=== PATIENT | male | born 2000 | race Caucasian/White ===

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

== ENCOUNTER 2021-11-23 01:32 | Emergency (ER) | payer BC ==
[2021-11-23] MEDS ORDERED: IBUPROFEN 400 MG TAB ONE (03:36)
[2021-11-23] MEDS ORDERED: IBUPROFEN 200 MG TAB PO ONE (03:36)
--- NOTE | 2021-11-23 03:39 | ER ---
Nurse's Notes [facility] Name: Luis Wilson Age: 20 yrs Sex: Male : 2000 Arrival Date: 11/23/2021 Time: 01:57 Bed 19 Private MD: Diagnosis: Chest pain, unspecified Presentation: 11/23 02:00 Chief complaint: Patient states: tight pressure in chest started over the weekend. at lg3 first it came and went but now its consistant. denies SOB at this time. Coronavirus screen: Vaccine status: Patient reports receiving the 1st dose of the Covid vaccine. moderna x1 Client denies travel out of the [place] in the last 14 days. At this time, the client does not indicate any symptoms associated with coronavirus-19. Ebola Screen: No symptoms or risks identified at this time. Initial Sepsis Screen: Does the patient meet any 2 criteria? No. Patient's initial sepsis screen is negative. Does the patient have a suspected source of infection? No. Patient's initial sepsis screen is negative. Risk Assessment: Do you want to hurt yourself or someone else? Patient reports no desire to harm self or others. Onset of symptoms was November 20, 2021. 02:00 Method Of Arrival: Ambulatory lg3 02:00 Acuity: JAMAR 3 ll3 Triage Assessment: 02:05 General: Appears in no apparent distress. Behavior is calm, cooperative. Pain: lg3 Complains of pain in chest Pain does not radiate. Pain currently is 2 out of 10 on a pain scale. Quality of pain is described as heavy, pressure. Neuro: Level of Consciousness is awake, alert, obeys commands, Oriented to person, place, time, situation. Cardiovascular: Capillary refill < 3 seconds JVD Thorax Patient's skin is warm and dry. Respiratory: Airway is patent Trachea midline Respiratory effort is even, unlabored, Respiratory pattern is regular, symmetrical. Historical: - Allergies: 02:05 No Known Allergies; lg3 - Home Meds: 02:05 None [Active]; lg3 - PMHx: 02:05 None; lg3 - PSHx: 02:05 None; lg3 - Immunization history:: Adult Immunizations up to date, Client reports receiving the 1st dose of the Covid vaccine, moderna x1. - Social history:: Smoking status: Patient denies any tobacco usage or history of. - Family history:: not pertinent. Screenin:46 Abuse screen: Denies threats or abuse. Nutritional screening: No deficits noted. sf1 Tuberculosis screening: No symptoms or risk factors identified. Fall Risk None identified. Assessment: 03:47 Pain: Pain began 1 day ago. sf1 Vital Signs: 02:00 BP 130 / 79 RA; Pulse 58; Resp 18 S; Temp 98.4(O); Pulse Ox 100% on R/A; Weight 79.38 lg3 kg (R); Height 6 ft. (182.88 cm) (R); Pain 2/10; 02:00 Body Mass Index 23.73 (79.38 kg, 182.88 cm) lg3 ED Course: 01:57 Patient arrived in ED. es 02:05 Triage completed. lg3 02:05 Arm band placed on right wrist. lg3 02:21 Jeffry Bonilla MD is Attending Physician. michelle 02:29 Maddy De Anda RN is Primary Nurse. sf1 02:39 SARS-COV-2 RT PCR (Document "Date of Onset" if Symptomatic) Sent. sf1 03:09 Chest Single View XRAY In Process Unspecified. EDOR 03:46 Patient has correct armband on for positive identification. Pulse ox on. NIBP on. sf1 03:46 No provider procedures requiring assistance completed. Patient did not have IV access sf1 during this emergency room visit. Patient maintains SpO2 saturation greater than 95% on room air. Administered Medications: 03:46 Drug: Motrin (ibuprofen) 600 mg Route: PO; sf1 Outcome: 03:39 Discharge ordered by . [facility] 03:46 Discharged to home ambulatory. sf1 03:46 Condition: good 03:46 Discharge instructions given to patient, Instructed on discharge instructions, follow up and referral plans. Demonstrated understanding of instructions, follow-up care, medications, Prescriptions given X 2. 03:47 Patient left the ED. sf1 Signatures: Dispatcher [employer] EDOR Jeffry Bonilla MD MD cha Salyer, Edna es Gibson, Lacie, RN RN lg3 Mackenzie Segura RN RN ll3 Maddy De Anda RN RN sf1 Corrections: (The following items were deleted from the chart) 02:07 02:00 Acuity: JAMAR 5 lg3 ll3
--- NOTE | 2021-11-23 03:40 | EDPHYS ---
Physician Documentation [facility] Name: Luis Wilson Age: 20 yrs Sex: Male : 2000 Arrival Date: 11/23/2021 Time: 01:57 Bed 19 Private MD: LUIZ Physician Jeffry Bonilla HPI: 11/23 02:34 This 20 yrs old Male presents to ER via Ambulatory with complaints of Chest michelle Pressure, Breathing Difficulty. 02:34 This 20 yrs old Black Male presents to ER via Ambulatory with complaints of Chest michelle Pressure, Breathing Difficulty. 02:34 The patient or guardian reports chest pain that is located primarily in the anterior michelle chest wall, bilaterally. The pain does not radiate. Associated signs and symptoms: Pertinent positives: cough. The chest pain is described as aching. Duration: The patient or guardian reports multiple episodes, that are intermittent. Modifying factors: The symptoms are alleviated by nothing. the symptoms are aggravated by nothing. Severity of pain: At its worst the pain was mild in the emergency department the pain is unchanged. The patient has not experienced similar symptoms in the past. Historical: - Allergies: 02:05 No Known Allergies; lg3 - Home Meds: 02:05 None [Active]; lg3 - PMHx: 02:05 None; lg3 - PSHx: 02:05 None; lg3 - Immunization history:: Adult Immunizations up to date, Client reports receiving the 1st dose of the Covid vaccine, moderna x1. - Social history:: Smoking status: Patient denies any tobacco usage or history of. - Family history:: not pertinent. ROS: 02:34 Constitutional: Negative for fever, chills, and weight loss, Eyes: Negative for injury, michelle pain, redness, and discharge, ENT: Negative for injury, pain, and discharge, Neck: Negative for injury, pain, and swelling, Cardiovascular: Negative for chest pain, palpitations, and edema, Respiratory: Negative for shortness of breath, cough, wheezing, and pleuritic chest pain, Abdomen/GI: Negative for abdominal pain, nausea, vomiting, diarrhea, and constipation, Back: Negative for injury and pain, : Negative for injury, bleeding, discharge, and swelling, MS/Extremity: Negative for injury and deformity, Skin: Negative for injury, rash, and discoloration, Neuro: Negative for headache, weakness, numbness, tingling, and seizure, Psych: Negative for depression, anxiety, suicide ideation, homicidal ideation, and hallucinations, Allergy/Immunology: Negative for hives, rash, and allergies, Endocrine: Negative for neck swelling, polydipsia, polyuria, polyphagia, and marked weight changes, Hematologic/Lymphatic: Negative for swollen nodes, abnormal bleeding, and unusual bruising. Exam: 02:34 Constitutional: This is a well developed, well nourished patient who is awake, alert, michelle and in no acute distress. Head/Face: Normocephalic, atraumatic. Eyes: Pupils equal round and reactive to light, extra-ocular motions intact. Lids and lashes normal. Conjunctiva and sclera are non-icteric and not injected. Cornea within normal limits. Periorbital areas with no swelling, redness, or edema. ENT: Nares patent. No nasal discharge, no septal abnormalities noted. Tympanic membranes are normal and external auditory canals are clear. Oropharynx with no redness, swelling, or masses, exudates, or evidence of obstruction, uvula midline. Mucous membranes moist. Neck: Trachea midline, no thyromegaly or masses palpated, and no cervical lymphadenopathy. Supple, full range of motion without nuchal rigidity, or vertebral point tenderness. No Meningismus. Chest/axilla: Normal chest wall appearance and motion. Nontender with no deformity. No lesions are appreciated. Cardiovascular: Regular rate and rhythm with a normal S1 and S2. No gallops, murmurs, or rubs. Normal PMI, no JVD. No pulse deficits. Respiratory: Lungs have equal breath sounds bilaterally, clear to auscultation and percussion. No rales, rhonchi or wheezes noted. No increased work of breathing, no retractions or nasal flaring. Abdomen/GI: Soft, non-tender, with normal bowel sounds. No distension or tympany. No guarding or rebound. No evidence of tenderness throughout. Back: No spinal tenderness. No costovertebral tenderness. Full range of motion. Male : Normal genitalia with no discharge or lesions. Skin: Warm, dry with normal turgor. Normal color with no rashes, no lesions, and no evidence of cellulitis. MS/ Extremity: Pulses equal, no cyanosis. Neurovascular intact. Full, normal range of motion. Neuro: Awake and alert, GCS 15, oriented to person, place, time, and situation. Cranial nerves II-XII grossly intact. Motor strength 5/5 in all extremities. Sensory grossly intact. Cerebellar exam normal. Normal gait. Psych: Awake, alert, with orientation to person, place and time. Behavior, mood, and affect are within normal limits. 02:34 Musculoskeletal/extremity: DVT Exam: No signs of deep vein thrombosis. no pain, no swelling, no tenderness, negative Homans' sign noted on exam, no appreciated bluish discoloration, no erythema, no increased warmth. Vital Signs: 02:00 BP 130 / 79 RA; Pulse 58; Resp 18 S; Temp 98.4(O); Pulse Ox 100% on R/A; Weight 79.38 lg3 kg (R); Height 6 ft. (182.88 cm) (R); Pain 2/10; 02:00 Body Mass Index 23.73 (79.38 kg, 182.88 cm) lg3 MDM: 02:21 Patient medically screened. michelle 02:40 Differential diagnosis: abnormal EKG, acute myocardial infarction, chest wall pain, michelle Cholelithiasis esophagitis, gastritis, hiatal hernia, pericarditis, pleurisy, pneumonia, pulmonary embolus, stable angina, unstable angina. HEART Score: History: Slightly Suspicious (0), ECG: Normal (0), Age: < or = 45 years (0), Risk Factors: No Risk Factors Known (0), Total Score = 0. The patient's deep vein thrombosis risk score was calculated as follows: Total Score: 0. This patient was found to be at low risk for a deep vein thrombosis by using the Well's assessment criteria. The patient's pulmonary embolism risk score was calculated as follows: Total Score: 0-2 points. This patient was found to be at low risk for a pulmonary embolism by using the Well's assessment criteria. SUSSY Risk Score: TOTAL SCORE = 0. Data reviewed: vital signs, nurses notes, lab test result(s), EKG, radiologic studies, plain films. Data interpreted: monitor car operator: rate is 58 beats/min, rhythm is regular, Pulse oximetry: on room air is 100 %. Test interpretation: by ED physician or midlevel provider: ECG, plain radiologic studies. Counseling: I had a detailed discussion with the patient and/or guardian regarding: the historical points, exam findings, and any diagnostic results supporting the discharge/admit diagnosis, lab results, radiology results, the need for outpatient follow up, for definitive care, a family practitioner. 11/23 02:29 Order name: SARS-COV-2 RT PCR (Document "Date of Onset" if Symptomatic); Complete Time: [facility] 03:41 11/23 02:29 Order name: Chest Single View XRAY [facility] 11/23 02:29 Order name: EKG; Complete Time: 02:30 [facility] 11/23 02:29 Order name: EKG - Nurse/Tech; Complete Time: 02:29 [facility] Administered Medications: 03:46 Drug: Motrin (ibuprofen) 600 mg Route: PO; sf1 Disposition Summary: 11/23/21 03:39 Discharge Ordered Location: Home [facility] Problem: new [facility] Symptoms: have improved michelle Condition: Stable michelle Diagnosis - Chest pain, unspecified michelle Followup: [facility] - With: Private Physician - When: 1 - 2 days - Reason: Recheck today's complaints, Continuance of care, Re-evaluation by your physician Discharge Instructions: - Discharge Summary Sheet [facility] - Nonspecific Chest Pain, Adult michelle - Nonspecific Chest Pain, Adult, [id number] [facility] - Aspirin and Your Heart [facility] Forms: - Medication Reconciliation Form [facility] - Thank You Letter [facility] - Antibiotic Education [facility] - Prescription Opioid Use [facility] Prescriptions: - Ibuprofen 600 mg Oral Tablet - take 1 tablet by ORAL route every 6 hours As needed take with food; 20 tablet; [facility] Refills: 0, Product Selection Permitted - Pepcid 20 mg Oral Tablet - take 1 tablet by ORAL route every 12 hours for 10 days; 20 tablet; Refills: 0, [facility] Product Selection Permitted Signatures: Dispatcher [employer] Jeffry Godoy MD MD cha Gibson, Lacie, RN RN lg3 Maddy De Anda RN RN sf1
[2021-11-23 03:52] VITALS: BP 130/79; TEMP 98.4; O2SAT 100
--- NOTE | 2021-11-23 07:31 | RAD REPORT ---
EXAM DESCRIPTION: RAD - Chest Single View - 11/23/2021 3:09 am CLINICAL HISTORY: CHEST PAIN COMPARISON: CHEST PA AND LAT 2 VIEW dated 11/22/2015 FINDINGS: Lines: None. Lungs: No evidence of edema or pneumonia. Pleural: No significant pleural effusions or pneumothorax. Cardiac: The heart size is within normal limits. Bones: No acute fractures. Other: IMPRESSION: No acute cardiopulmonary disease.
--- NOTE | 2021-11-23 08:14 | EKG ---
Test Date: 2021-11-23 Test Time: 02:20:36 Certified Appliance Service Technician: MEASUREMENT RESULTS: Intervals: Rate: 50 IN: 156 QRSD: 94 QT: 406 QTc: 370 [place]: P: 77 IN: 156 QRS: -14 T: 31 INTERPRETIVE STATEMENTS: Sinus bradycardia Otherwise normal ECG Compared to ECG 06/03/2015 09:36:38 Sinus rhythm no longer present Sinus arrhythmia no longer present Electronically Signed On 11-23-21 08:13:35 PRODUCT DESIGNER by Dariel Bonilla
== END 2021-11-23 03:47 | disposition home or self-care (01) ==
LOC: ER 01:32
DX: R07.9 Chest pain, unspecified (principal); Z20.822 Contact with and (suspected) exposure to COVID-19
CPT/HCPCS: 93005; 71045; 99284; U0003

== ENCOUNTER 2023-09-30 14:43 | Emergency (ER) | payer BC ==
--- NOTE | 2023-09-30 15:28 | ER ---
Nurse's Notes [facility] Name: Luis Wilson Age: 22 yrs Sex: Male : 2000 Arrival Date: 09/30/2023 Time: 14:43 Bed IW2 Private MD: Diagnosis: Unspecified acute conjunctivitis, bilateral Presentation: 09/30 15:14 Chief complaint: Bilateral eye redness, drainage, and irritation x 3 days. Coronavirus hb screen: At this time, the client does not indicate any symptoms associated with coronavirus-19. Ebola Screen: No symptoms or risks identified at this time. Initial Sepsis Screen: Does the patient meet any 2 criteria? No. Patient's initial sepsis screen is negative. Does the patient have a suspected source of infection? No. Patient's initial sepsis screen is negative. Risk Assessment: Do you want to hurt yourself or someone else? Patient reports no desire to harm self or others. Onset of symptoms was September 28, 2023. 15:14 Method Of Arrival: Ambulatory hb 15:14 Acuity: JAMAR 4 hb Historical: - Allergies: 15:16 No Known Allergies; hb - Home Meds: 15:16 None [Active]; hb - PMHx: 15:16 None; hb - PSHx: 15:16 None; hb - Immunization history:: Adult Immunizations up to date. - Social history:: Smoking status: Patient denies any tobacco usage or history of. Vital Signs: 15:14 BP 128 / 78; Pulse 88; Resp 16; Temp 98.2; Pulse Ox 100% on R/A; Weight 84.37 kg; hb Height 6 ft. 0 in. ; Pain 3/10; 15:14 Body Mass Index 25.23 (84.37 kg, 182.88 cm) hb 15:14 Pain Scale: Adult hb ED Course: 14:45 Patient arrived in ED. im 15:16 Triage completed. hb 15:16 Arm band placed on. hb 15:21 Marquis Galvez FNP-C is PHCP. la1 15:21 Eliseo Light is Attending Physician. la1 15:21 PHCP role handed off by Marquis Galvez FNP-C sb4 15:21 Faith Duval PA-C is PHCP. sb4 15:27 Teddy Mcbride MD is Referral Physician. sb4 Administered Medications: No medications were administered Outcome: : Discharge ordered by . sb4 15:36 Patient left the ED. hb Signatures: Marquis Galvez, PATRICK-C BOOT MAKER-Cla1 Shyla Go, RN RN Faith Godwin PA-C PA-C sb4 Anum Carson
--- NOTE | 2023-09-30 15:28 | EDPHYS ---
Physician Documentation [facility] Name: Luis Wilson Age: 22 yrs Sex: Male : 2000 Arrival Date: 09/30/2023 Time: 14:43 Bed IW2 Private MD: ED Physician Eliseo Light Historical: - Allergies: 09/30 15:16 No Known Allergies; hb - Home Meds: 15:16 None [Active]; hb - PMHx: 15:16 None; hb - PSHx: 15:16 None; hb - Immunization history:: Adult Immunizations up to date. - Social history:: Smoking status: Patient denies any tobacco usage or history of. Vital Signs: 15:14 BP 128 / 78; Pulse 88; Resp 16; Temp 98.2; Pulse Ox 100% on R/A; Weight 84.37 kg; hb Height 6 ft. 0 in. ; Pain 3/10; 15:14 Body Mass Index 25.23 (84.37 kg, 182.88 cm) hb 15:14 Pain Scale: Adult hb MDM: 15:21 Patient medically screened. sb4 Administered Medications: No medications were administered Disposition Summary: 09/30/23 15:27 Discharge Ordered Notes: Location: Home sb4 Problem: new sb4 Symptoms: are unchanged sb4 Condition: Stable sb4 Diagnosis - Unspecified acute conjunctivitis, bilateral sb4 Followup: sb4 - With: Teddy Mcbride MD - When: As needed - Reason: Further diagnostic work-up, Recheck today's complaints, Re-evaluation by your physician Discharge Instructions: - Discharge Summary Sheet sb4 - Bacterial Conjunctivitis, Adult sb4 Forms: - Medication Reconciliation Form sb4 - Thank You Letter sb4 - Antibiotic Education sb4 - Prescription Opioid Use sb4 - Patient Portal Instructions sb4 - Leadership Thank You Letter sb4 Prescriptions: - polymyxin B sulf-trimethoprim 10,000 unit- 1 mg/mL Ophthalmic drops - instill 1 drop OPHTHALMIC route every 3 hours for 10 days do not exceed 6 doses sb4 in a 24 hr period; 1 application; Refills: 0, Product Selection Permitted Addendum: 10/01/2023 15:40 Addendum: H\T\P: 22-year-old male with no past medical history presents with complaints sb4 of bilateral eye erythema with associated drainage and itchiness. He denies any changes in vision or severe pain. He states that this happened a couple times before and has improved with eyedrops. He is not sure why this happens. He does work outside but states he wears safety goggles. He denies any allergy-like associated symptoms. ROS: as per HPI. Physical exam: Cornea is moderately injected bilaterally with yellow discharge and crusting around the upper eyelids. Extraocular movements intact without any pain. Eyelids without any swelling or erythema. Vision without any acute changes. Remaining physical exam is unremarkable. Assessment: Bilateral bacterial conjunctivitis. Will treat with eyedrops. Return precautions given. I instructed him to follow-up with telemetry given the recurrence of this issue. 10/09/2023 09:21 I reviewed the patient's care provided by the Advanced Practice Provider and agree with mariusz robles the diagnosis and treatment plan. Signatures: Shyla Go RN RN hb Brown, Sophia, PA-C PA-C sb4 Iheonunekwu, Eliseo
[2023-09-30 15:42] VITALS: BP 128/78; TEMP 98.2; O2SAT 100
== END 2023-09-30 15:36 | disposition home or self-care (01) ==
LOC: ER 14:43
DX: H10.33 Unspecified acute conjunctivitis, bilateral (principal)
CPT/HCPCS: 99281